=== PATIENT | male | born 1940 | race Caucasian/White ===

== ENCOUNTER 2019-06-01 22:18 | Emergency (ER) | payer MEDICARE, OTHER ==
[2019-06-01] MEDS ORDERED: PROMETHAZINE HCL INJ 25 MG in SODIUM CHLORIDE 0.9% 50ML 50 ML IVPB ONE (22:38)
[2019-06-01] MEDS ORDERED: ALUMINUM & MAGNESIUM HYDROXIDE 30 ML UD PO ONE (22:39)
[2019-06-01] MEDS ORDERED: SODIUM CHLORIDE 0.9% 50ML 50 ML ONE (22:43)
[2019-06-01] MEDS ORDERED: PROMETHAZINE HCL INJ 25 MG/ML VIAL ONE (22:43)
[2019-06-01] MEDS: ASPIRIN TABLET 325 MG TAB PO ONE ×2 (22:45→23:18)
[2019-06-01] MEDS ORDERED: METOPROLOL TARTRATE INJ 5 MG/5 ML VIAL IV ONE (23:23)
--- NOTE | 2019-06-01 23:25 | RAD ---
EXAM: XR Abdomen, 2 Views and XR Chest, 1 View CLINICAL HISTORY: The patient is 78 years old and is Male; acute nausea TECHNIQUE: Frontal view of the chest, frontal view of the abdomen/pelvis and upright or decubitus view of the abdomen. COMPARISON: No relevant prior studies available. FINDINGS: LUNGS: Unremarkable. No consolidation. PLEURAL SPACE: Unremarkable. No pneumothorax. HEART: Unremarkable. No cardiomegaly. MEDIASTINUM: Unremarkable. INTRAPERITONEAL SPACE: No free air. GASTROINTESTINAL TRACT: Multiple air-fluid levels are noted throughout the abdomen. No dilated loops of bowel are seen. Distal air is present. Postsurgical change of the bowel in the lower pelvis noted. BONES/JOINTS: There are degenerative changes of the bones. VASCULATURE: Atherosclerosis of the aorta is present. Evidence of an aortoiliac graft is present. IMPRESSION: 1. No acute cardiopulmonary process. 2. Findings suggestive of at least an ileus pattern involving the small bowel. Electronically signed by: Mary Monterroso MD 06/01/2019 11:23 PM SEWER HAND
[2019-06-01] MEDS ORDERED: MAGNESIUM SULFATE PREMIX 2GM 2 GM in PREMIX BAG 1 BAG IVPB ONE (23:33)
[2019-06-01] MEDS ORDERED: MAGNESIUM SULFATE PREMIX 2GM 50 ML IVPB ONE (23:41)
[2019-06-01] MEDS: POTASSIUM CHLORIDE ELIXIR 20 MEQ/15 ML UD PO ONE (23:42)
--- NOTE | 2019-06-02 01:01 | CT ---
EXAM: CT Angiography Chest and CT Abdomen and Pelvis With Intravenous Contrast CLINICAL HISTORY: The patient is 78 years old and is Male; hx aneurysm, nausea TECHNIQUE: Axial computed tomographic angiography images of the chest and axial computed tomography images of the abdomen and pelvis with intravenous contrast. Sagittal and coronal reformatted images were created and reviewed. This CT exam was performed using one or more of the following dose reduction techniques: automated exposure control, adjustment of the mA and/or kV according to patient size, and/or use of iterative reconstruction technique. MIP reconstructed images were created and reviewed. COMPARISON: CTA of the abdomen December 23, 2012. FINDINGS: CHEST: AORTA: Aneurysmal dilatation of the descending thoracic aorta measuring up to 3.6 cm is present. 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 PULMONARY ARTERIES: There are no obvious filling defects identified within the pulmonary arteries to suggest pulmonary embolism. GREAT VESSELS OF AORTIC ARCH: No acute findings. No dissection. No arterial occlusion or significant stenosis. LUNGS: Mild bilateral centrilobular emphysematous changes of the lungs are present. There is no lobar consolidation. PLEURAL SPACE: Unremarkable. No significant effusion. No pneumothorax. HEART: Unremarkable. No cardiomegaly. No significant pericardial effusion. ABDOMEN: LIVER: Unremarkable. No mass. GALLBLADDER AND BILE DUCTS: Unremarkable. No calcified stones. No ductal dilation. PANCREAS: The pancreas is atrophic. No ductal dilation. SPLEEN: Unremarkable. No splenomegaly. ADRENALS: Unremarkable. No mass. KIDNEYS AND URETERS: The right kidney is atrophic. The left kidney is hypertrophied. The kidneys enhance symmetrically. No obstructing renal or ureteral calculus is seen. No hydronephrosis. No solid mass. STOMACH AND BOWEL: The stomach is fluid-filled. The small bowel and colon are diffusely fluid-filled. Distal stool is present. There is no overt obstruction. Postsurgical change of the rectosigmoid colon is noted. No mucosal thickening. PELVIS: APPENDIX: No findings to suggest acute appendicitis. BLADDER: The bladder is not well distended. REPRODUCTIVE: Unremarkable as visualized. CHEST, ABDOMEN and PELVIS: INTRAPERITONEAL SPACE: Unremarkable. No significant fluid collection. No free air. BONES/JOINTS: No acute fracture. No dislocation. Multilevel degenerative change of the spine is present, specifically the lumbar spine. SOFT TISSUES: Unremarkable. VASCULATURE: Evidence of an aortoiliac bypass graft is noted extending from the infrarenal aorta. A bifemoral bypass graft is also present which is patent. Chronic occlusion of the right common iliac artery, right internal and external iliac arteries is noted. Atherosclerosis of the vasculature is present. LYMPH NODES: Unremarkable. No enlarged lymph nodes. IMPRESSION: 1. No evidence of pulmonary embolism. 2. 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 ACR White Paper guidelines (Khmichael, et al. JACR 2013; 10(10):789-94) suggest annual CTA or MRA follow-up if asymptomatic. More frequent follow-up or surgical/endovascular intervention is recommended if patient is symptomatic. 3. Evidence of an aortoiliac bypass graft with associated bifemoral bypass graft. The overall appearance is similar to prior exam. 4. Findings suggestive of a diffuse enterocolitis without evidence of obstruction. Electronically signed by: Mary Monterroso MD 06/02/2019 12:59 AM MATTRESS STRIPPER
[2019-06-02] MEDS ORDERED: POTASSIUM CHLORIDE INJ 40 MEQ 40 MEQ in SODIUM CHLORIDE 0.9% 250ML 250 ML IVPB ONE (01:21)
[2019-06-02] MEDS ORDERED: SODIUM CHLORIDE 0.9% 1000ML 1,000 ML IVS ONE ×2 (01:21→06:55)
[2019-06-02] MEDS ORDERED: KCL 40 MEQ/WATER FOR INJ 100ML 100 ML IVPB ONE ×3 (01:31→07:27)
--- NOTE | 2019-06-02 01:34 | ED.PDOC ---
History of Present Illness - General Source: patient Exam Limitations: no limitations - History of Present Illness Initial Comments: he patient is a 78-year-old male presented to the emergency room secondary to a feeling of nausea and flushing that started about an hour prior to arrival. He did have a little bit of left arm discomfort. No real chest pain or shortness of breath. No syncope. He did feel weak in general. No vomiting. No diarrhea. No syncope or near syncope. No palpitations. He was feeling fine prior to that. Of note he did have a 6 cheese casserole with heavy cream and cooking oil for supper. His diet does not usually consist of that heavy food. There is some question of mild lactose intolerance in the past. The patient does not have any coronary history however he has had a history of a aortic aneurysm requiring surgery about 6 years ago. He is not really having any abdominal pain. Vital signs are actually stablewith some mild to moderate hypertension. Timing/Duration: 1 hour Severity: moderate Improving Factors: nothing Worsening Factors: nothing Associated Symptoms: loss of appetite, malaise, nausea/vomiting, weakness <Johan Sanchez - Last Filed: 06/02/19 06:28> <Johan Valdovinos - Last Filed: 06/02/19 09:58> - General Chief Complaint: General Stated Complaint: feels bad, nausea Time Seen by Provider: 06/01/19 22:31 - History of Present Illness Allergies/Adverse Reactions: Allergies Hydromorphone [From Dilaudid] Allergy (Verified 06/01/19 23:58) Home Medications: Ambulatory Orders Alprazolam [Xanax] 1 mg PO BEDTIME 06/23/16 Calcium 500 mg PO DAILY 06/23/16 Coenzyme Q10 (Ubidecarenone) [Co Q-10] 100 mg PO DAILY 06/23/16 Cyanocobalamin [Vitamin B12] 1,500 mcg PO DAILY 06/23/16 Losartan Potassium & Hydrochlo [Losartan Potassium/Hydroc 100-12.5 mg] 1 tab PO DAILY 06/23/16 Metoprolol Succinate [Toprol XL] 50 mg PO BID 06/23/16 Multiple Vitamins W/ Minerals [Multi For Him 50+] 1 tab PO DAILY 06/23/16 Potassium Gluconate [Potassium] 99 mg PO BID 06/23/16 Vitamin E 400 unit PO DAILY 06/23/16 Amlodipine Besylate [Norvasc] 10 mg PO QAM 06/01/19 Esomeprazole Magnesium [Nexium] 40 mg PO DAILY 06/01/19 Review of Systems - Review of Systems Constitutional: States: malaise, weakness EENTM: States: no symptoms reported Respiratory: States: no symptoms reported Cardiology: States: no symptoms reported Gastrointestinal/Abdominal: States: nausea Genitourinary: States: no symptoms reported Musculoskeletal: States: no symptoms reported Skin: States: no symptoms reported Neurological: States: anxiety Endocrine: States: no symptoms reported All other Systems: No Change from Baseline <oJhan Sanchez - Last Filed: 06/02/19 06:28> Past Medical History (General) - Patient Medical History Hx Seizures: No Hx Stroke: No Hx Dementia: No Hx Cardiac Disorders: No Hx Congestive Heart Failure: No Hx Pacemaker: No Hx Hypertension: Yes Hx Diabetes: No Hx Gastroesophageal Reflux: Yes Hx Renal Disease: No Hx Cancer: No Hx Hepatitis C: No Surgical History: appendectomy - Vaccination History Hx Tetanus, Diphtheria Vaccination: No Hx Influenza Vaccination: Yes Hx Pneumococcal Vaccination: Yes - Social History Hx Alcohol Use: Yes - OCC Hx Substance Use: No Hx Substance Use Treatment: No - Triage Comment ED Triage Comment: Vague symptoms, just not feeling well <Johan Sanchez - Last Filed: 06/02/19 06:28> Family Medical History - Family History Father Family History: Unknown Living Status: <Johan Sanchez - Last Filed: 06/02/19 06:28> Physical Exam - Physical Exam General Appearance: Alert, Anxious, No apparent distress Eye Exam: bilateral normal Ears, Nose, Throat: hearing grossly normal, normal ENT inspection Neck: full range of motion, supple Respiratory: lungs clear, normal breath sounds, no respiratory distress, no accessory muscle use Cardiovascular/Chest: normal peripheral pulses, regular rate, rhythm, no edema Peripheral Pulses: radial,right: 2+, radial,left: 2+, dorsalis pedis,right: 2+, dorsalis pedis,left: 2+ Gastrointestinal/Abdominal: non tender, soft Rectal Exam: deferred Back Exam: no CVA tenderness, no vertebral tenderness Extremity: normal range of motion, non-tender, normal inspection, no pedal edema, normal capillary refill 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, alert, normal mood/affect - he is anxious, oriented x 3 Skin Exam: normal color Comments: Vital Signs - 24 hr 06/01/19 06/01/19 06/01/19 22:27 22:35 23:10 Temperature 96.8 F L Pulse Rate [ 85 80 79 Apical] Respiratory 16 Rate Blood Pressure 152/81 136/73 [Left Arm] O2 Sat by Pulse 91 L 91 L Oximetry 06/01/19 06/02/19 06/02/19 23:30 00:21 01:00 Temperature Pulse Rate [ 74 66 66 Apical] Respiratory 14 14 14 Rate Blood Pressure 161/80 141/73 126/71 [Left Arm] O2 Sat by Pulse 91 L 92 L 92 L Oximetry <Johan Sanchez - Last Filed: 06/02/19 06:28> Progress - Progress Progress: 06/02/19 01:35 the patient is a 78-year-old male presenting to emergency room secondary to a feeling of weakness and nausea that occurred at home while at rest. Workup seems to be pointing to a mild gastroenteritis whether infectious or dietary is uncertain. CT scan seems to confirm a mild ileus but no definite obstruction. Additionally there appears to be a small penetrating ulceration to the descending thoracic aorta where routine yearly imaging as long as he remained asymptomatic is recommended. At this time I do not believe that this is the source of his symptoms. Initial heart enzymes are negative. The patient is currently having his second set drawn. If it is negative as well that he will be monitored here in the emergency room overnight as there are no inpatient beds available due to renovations. The patient does have significant hypokalemia and hypomagnesemia. We are working on correcting these. The patient reports that he cannot take oral potassium at this time as he thinks he would throw it up. He has received some Phenergan for nausea. We will continue telemetry monitoring. He is not having any chest pain, shortness of breath or left arm discomfort at this time. We will continue to monitor. 06/02/19 06:29 the patient is not having any further nausea. He has however started having diarrhea, further pointing to gastroenteritis as the source of his symptoms primarily. The patient was not able to tolerate the oral potassium. He is therefore having to be replaced with IV potassium. He will need another lab check for electrolytes around 8 or 9 in the morning along with a repeat set of cardiac enzymes. If he is adequately replenished then he will likely be able to go home assuming symptoms do not worsen or change significantly. He is receiving some IV fluids to prevent significant dehydration. No chest pain. The patient is being monitored here in the emergency room for an extended emergency room stay due to a lack of available inpatient rooms, related to repai rs. 06/02/19 06:32 the patient will be followed by the oncoming ER physician for now. - Results/Orders Results/Orders: EKG shows a right bundle branch block with Q waves in inferior leads. These 2 findings are not new, they were present from an EKG from 2016. No definitive new ST segment changes or T-wave changes when compared with previous. Normal sinus rhythm with first-degree AV block at 76 bpm. Difficult to interpret otherwise secondary to conduction abnormality. Acute abdominal series is consistent with a mild ileus. CT angiogram of the chest shows no evidence of any pulmonary embolus however he does have significant calcifications of the aorta and he does have a small penetrating ulcer of the distal ascending aorta for which annual evaluation is recommended unless it is symptomatic. CT scan of the abdomen and pelvis seems to confirm a mild ileus. No obvious obstruction. Previous aortic surgery is noted. See report for details. No other obvious acute pathology is noted. 06/01/19 22:37 Telemetry .CONTINUOUS 06/01/19 22:38 EKG Assessment ONCE 06/01/19 22:45 EKG STAT 06/01/19 23:29 Hold Metformin x 48Hrs [id number] 06/02/19 01:21 Potassium Chloride Inj 40 Meq 40 meq Sodium Chloride 0.9% 250Ml [NS 250ml] 250 ml IVPB ONCE Sodium Chloride 0.9% 1000ML [Ns 1000 ml] 1,000 ml IVS ONCE 06/02/19 01:35 KCl 40 Meq/Water For Inj 100Ml [Potassium 40meq in Water 100ml] 40 meq Premix Bag 1 bag IVPB ONCE 06/02/19 01:40 EKG Assessment ONCE 06/02/19 01:45 EKG STAT Laboratory Results - last 24 hr 06/01/19 06/01/19 06/01/19 22:59 22:59 22:59 WBC 12.1 H RBC 4.62 L Hgb 15.3 Hct 45.4 MCV 98.3 H MCH 33.2 H MCHC 33.8 RDW 13.5 Plt Count 242 MPV 8.6 Absolute Neuts (auto) 9.30 H Absolute Lymphs (auto) 1.60 Absolute Monos (auto) 0.80 Absolute Eos (auto) 0.30 Absolute Basos (auto) 0.10 Neutrophils % 76.9 Lymphocytes % 13.4 L Monocytes % 6.7 Eosinophils % 2.1 Basophils % 0.9 PT INR PTT (SP) D-Dimer, Quantitative Sodium 140 Potassium 2.7 L Chloride 99 L Carbon Dioxide 31 Anion Gap 12.7 BUN 15 Creatinine 1.01 BUN/Creatinine Ratio 14.9 Random Glucose 123 H Serum Osmolality 281.6 Calcium 9.6 Magnesium 1.4 L Total Bilirubin 0.7 AST 21 ALT 14 Alkaline Phosphatase 56 Creatine Kinase 86 CK-MB (CK-2) 3.1 CK-MB (CK-2) % Not Reportable Troponin I < 0.02 B-Natriuretic Peptide 89.0 Serum Total Protein 7.8 Albumin 4.7 Globulin 3.1 Albumin/Globulin Ratio 1.5 Amylase 90 Lipase 39 Urine Color Urine Appearance Urine pH Ur Specific [place] Urine Protein Urine Glucose (UA) Urine Ketones Urine Blood Urine Nitrite Urine Bilirubin Urine Urobilinogen Ur Leukocyte Esterase Urine RBC Urine WBC Ur Epithelial Cells Urine Bacteria 06/01/19 06/02/19 06/02/19 22:59 01:20 01:30 WBC RBC Hgb Hct MCV MCH MCHC RDW Plt Count MPV Absolute Neuts (auto) Absolute Lymphs (auto) Absolute Monos (auto) Absolute Eos (auto) Absolute Basos (auto) Neutrophils % Lymphocytes % Monocytes % Eosinophils % Basophils % PT 10.1 INR 1.01 PTT (SP) 26.6 D-Dimer, Quantitative 6.21 H* Sodium Potassium Chloride Carbon Dioxide Anion Gap BUN Creatinine BUN/Creatinine Ratio Random Glucose Serum Osmolality Calcium Magnesium Total Bilirubin AST ALT Alkaline Phosphatase Creatine Kinase 70 CK-MB (CK-2) 2.5 CK-MB (CK-2) % Not Reportable Troponin I < 0.02 B-Natriuretic Peptide Serum Total Protein Albumin Globulin Albumin/Globulin Ratio Amylase Lipase Urine Color Yellow Urine Appearance Clear Urine pH 5.5 Ur Specific [place] <= 1.005 Urine Protein Negative Urine Glucose (UA) Negative Urine Ketones Negative Urine Blood Negative Urine Nitrite Negative Urine Bilirubin Negative Urine Urobilinogen 0.2 Ur Leukocyte Esterase Negative Urine RBC 0 Urine WBC 0-1 Ur Epithelial Cells 0 Urine Bacteria Rare <Johan Sanchez - Last Filed: 06/02/19 06:28> Departure - Departure Diet: bland diet Activity: increase activity as tolerated <Johan Sanchez - Last Filed: 06/02/19 06:28> <Johan Valdovinos - Last Filed: 06/02/19 09:58> - Departure Clinical Impression: Gastroenteritis Disposition: Discharge to Home or Self Care Condition: Fair Departure Forms: ED Discharge - Pt. Copy, Patient Portal Self Enrollment Referrals: LENY VORA [Primary Care Provider] - 1-2 Days Home Medications: Ambulatory Orders Alprazolam [Xanax] 1 mg PO BEDTIME 06/23/16 Calcium 500 mg PO DAILY 06/23/16 Coenzyme Q10 (Ubidecarenone) [Co Q-10] 100 mg PO DAILY 06/23/16 Cyanocobalamin [Vitamin B12] 1,500 mcg PO DAILY 06/23/16 Losartan Potassium & Hydrochlo [Losartan Potassium/Hydroc 100-12.5 mg] 1 tab PO DAILY 06/23/16 Metoprolol Succinate [Toprol XL] 50 mg PO BID 06/23/16 Multiple Vitamins W/ Minerals [Multi For Him 50+] 1 tab PO DAILY 06/23/16 Potassium Gluconate [Potassium] 99 mg PO BID 06/23/16 Vitamin E 400 unit PO DAILY 06/23/16 Amlodipine Besylate [Norvasc] 10 mg PO QAM 06/01/19 Esomeprazole Magnesium [Nexium] 40 mg PO DAILY 06/01/19 ED Addendum - ED Addendum Addendum: patient is doing a lot better and his potassium improved and his third set of troponins were negative. patient will be discharge home with instructions to keep hydrated at home and return to the er if abdominal pain, chest pain, nausea, vomiting, if not holding fluids down or any other concerns <Johan Valdovinos - Last Filed: 06/02/19 09:58>
[2019-06-02] MEDS ORDERED: KCL 40 MEQ/WATER FOR INJ 100ML 40 MEQ in PREMIX BAG 1 BAG IVPB ONE ×2 (01:35→06:40)
[2019-06-02] MEDS: POTASSIUM CHLORIDE ELIXIR 20 MEQ/15 ML UD PO ONE (01:40)
[2019-06-02] MEDS ORDERED: SODIUM CHLORIDE 0.9% 1000ML 1,000 ML ONE (06:56)
[2019-06-02 10:26] VITALS: BP 134/71; TEMP 96.4; O2SAT 93
== END 2019-06-02 10:26 | disposition home or self-care (01) ==
LOC: ER 22:18
DX: K52.9 Noninfective gastroenteritis and colitis, unspecified (principal); K21.9 Gastro-esophageal reflux disease without esophagitis; I10 Essential (primary) hypertension; Z88.5 Allergy status to narcotic agent; Z90.49 Acquired absence of other specified parts of digestive tract; Z79.899 Other long term (current) drug therapy
CPT/HCPCS: 36415; 71275; 74019; 74177; 80053; 81001; 82150; 82550; 82553; 83690; 83735; 83880; 84484; 85025; 85379; 85610; 85730; 87502; 93005; A4216; J2550; J3475; J3480; J7030

== ENCOUNTER 2019-10-09 16:52 | Inpatient (IN) | payer MEDICARE, OTHER ==
--- NOTE | 2019-10-09 17:09 | ED.PDOC ---
History of Present Illness - General Chief Complaint: General Stated Complaint: Weakness, fever, SOB and diarrhea Time Seen by Provider: 10/09/19 17:07 Source: patient, family Exam Limitations: no limitations - History of Present Illness Initial Comments: Pt reports fever up to 101F, chills, weakness and diarrhea since this a.m. He denies DE LEON, sore throat or nasal congestion. He denies abd pain. He admits to some SOB. says that had a "[employer]" burger that they picked up yesterday and wasn't sure if it was related. Pt denies urinary symptoms. His PCP is Dr. Esposito out of [place]. Pt says they have been very isolated from others for about a month. Timing/Duration: other - Since this am Severity: moderate Improving Factors: nothing Worsening Factors: nothing Associated Symptoms: cough - minimal, "allergy cough", fever/chills, malaise, shortness of breath, other - diarrhea Allergies/Adverse Reactions: Allergies Hydromorphone [From Dilaudid] Allergy (Verified 06/01/19 23:58) Home Medications: Ambulatory Orders Alprazolam [Xanax] 1 mg PO BEDTIME 06/23/16 Coenzyme Q10 (Ubidecarenone) [Co Q-10] 100 mg PO DAILY 06/23/16 Cyanocobalamin [Vitamin B12] 1,500 mcg PO DAILY 06/23/16 Losartan Potassium & Hydrochlo [Losartan Potassium/Hydroc 100-12.5 mg] 1 tab PO DAILY 06/23/16 RX: Potassium Gluconate [Potassium] 99 mg PO BID 06/23/16 Amlodipine Besylate [Norvasc] 10 mg PO QAM 06/01/19 Esomeprazole Magnesium [Nexium] 40 mg PO DAILY 06/01/19 Review of Systems - Review of Systems Constitutional: States: see HPI, chills, fever, weakness. Denies: diaphoresis EENTM: States: no symptoms reported. Denies: ear pain, ear discharge, nose pain, nose congestion, throat pain, throat swelling, mouth pain, mouth swelling Respiratory: States: see HPI, cough - "allergy cough," doesn't think it's worse than usual, short of breath. Denies: wheezing Cardiology: States: no symptoms reported Gastrointestinal/Abdominal: States: see HPI, diarrhea. Denies: abdominal pain, constipation, nausea, vomiting Musculoskeletal: States: no symptoms reported Skin: States: no symptoms reported Neurological: States: no symptoms reported Endocrine: States: no symptoms reported Hematologic/Lymphatic: States: no symptoms reported Past Medical History (General) - Patient Medical History Hx Seizures: No Hx Stroke: No Hx Dementia: No Hx Cardiac Disorders: No Hx Congestive Heart Failure: No Hx Pacemaker: No Hx Hypertension: Yes Hx Diabetes: No Hx Gastroesophageal Reflux: Yes Hx Renal Disease: No Hx Cancer: No Hx Hepatitis C: No - Vaccination History Hx Tetanus, Diphtheria Vaccination: No Hx Influenza Vaccination: Yes Hx Pneumococcal Vaccination: Yes - Social History Hx Alcohol Use: Yes - OCC Hx Substance Use: No Hx Substance Use Treatment: No Family Medical History - Family History Father Family History: Unknown Living Status: Physical Exam - Physical Exam General Appearance: Alert, Obvious distress, Ill Appearing, Well Developed, Well Groomed, Well Hydrated, Well Nourished Neck: non-tender, full range of motion, supple, normal inspection Respiratory: chest non-tender, lungs clear, normal breath sounds, no respiratory distress, no accessory muscle use Cardiovascular/Chest: normal peripheral pulses, regular rate, rhythm, no edema, no gallop Gastrointestinal/Abdominal: normal bowel sounds, non tender, soft, no organomegaly, no pulsatile mass Progress - Progress Progress: 10/09/19 17:16 Based on age and presentation, I would consider pt high risk for COVID. I assessed pt from doorway while in droplet precautions. I never entered the room and therefore, had no real reason to wear anything more than droplet precautions. Considering pt feels SOB and had O2 sat on RA of 88-89%, pt likely to be admitted for further eval and treatment. 10/09/19 18:21 CXR noted. Possible bibasilar infiltrates. COVID test ordered. Rocephin and Zithromax given. Consult placed for [facility]. UA still pending. Vital Signs - 24 hr 10/09/19 10/09/19 10/09/19 17:13 17:15 17:40 Temperature 99.3 F Pulse Rate [ 95 H Pulse Ox] Respiratory 16 16 Rate Blood Pressure 125/73 [L Arm] O2 Sat by Pulse 87 L 94 L Oximetry 10/09/19 18:00 Temperature Pulse Rate [ 89 Pulse Ox] Respiratory 16 Rate Blood Pressure 108/64 [L Arm] O2 Sat by Pulse 95 Oximetry Laboratory Tests 10/09/19 10/09/19 10/09/19 17:38 17:38 17:38 WBC 10.1 RBC 4.32 L Hgb 14.4 Hct 41.9 L MCV 96.9 H MCH 33.4 H MCHC 34.5 RDW 13.8 Plt Count 162 MPV 8.6 Absolute Neuts (auto) 9.20 H Absolute Lymphs (auto) 0.50 L Absolute Monos (auto) 0.40 Absolute Eos (auto) 0.00 Absolute Basos (auto) 0.10 Neutrophils % 90.3 H Lymphocytes % 5.1 L Monocytes % 3.9 Eosinophils % 0.2 L Basophils % 0.5 Sodium 137 Potassium 3.5 L Chloride 101 Carbon Dioxide 27 Anion Gap 12.5 BUN 16 Creatinine 0.98 BUN/Creatinine Ratio 16.3 Random Glucose 123 H Serum Osmolality 276.4 Lactic Acid 1.2 Calcium 9.3 Total Bilirubin 1.1 H AST 20 ALT 16 Alkaline Phosphatase 48 Serum Total Protein 7.3 Albumin 4.4 Globulin 2.9 Albumin/Globulin Ratio 1.5 Findings Reporting MD: Naomi Montana Fellow MD: Not available Dictation Time: Special Class Welder: Not available Broadband Technician Date: EXAM DESCRIPTION: Chest,1 View CLINICAL HISTORY: 79 years Male fever COMPARISON: Prior study dated June 01, 2019. TECHNIQUE: AP view of the chest was obtained. FINDINGS: Cardiac size is within normal limits. Central vessels are noted increased. Minimal airspace opacities lower lungs bilaterally increased when correlated with the prior study. The findings are most pronounced on the right. No consolidation. No effusions bilaterally. No pneumothorax. IMPRESSION: Increasing infiltrate versus atelectatic change lower lungs bilaterally right greater than left. Electronically signed by: Naomi Montana MD 10/09/2019 5:37 PM CDT 10/09/19 18:35 D/w [facility]. He will accept admission. He asked that I notify family that he will be in isolation through hospital stay and will not be allowed visitors until he has been cleared. 10/09/19 18:37 10/09/19 18:38 Departure - Departure Clinical Impression: Pneumonia, Acute respiratory failure with hypoxia, Diarrhea, Dehydration Time of Disposition: 18:37 Disposition: Admit Patient Condition: Fair Departure Forms: ED Discharge - Pt. Copy, Patient Portal Self Enrollment Referrals: LENY VORA [Primary Care Provider] - 1-2 Weeks Home Medications: Ambulatory Orders Alprazolam [Xanax] 1 mg PO BEDTIME 06/23/16 Coenzyme Q10 (Ubidecarenone) [Co Q-10] 100 mg PO DAILY 06/23/16 Cyanocobalamin [Vitamin B12] 1,500 mcg PO DAILY 06/23/16 Losartan Potassium & Hydrochlo [Losartan Potassium/Hydroc 100-12.5 mg] 1 tab PO DAILY 06/23/16 RX: Potassium Gluconate [Potassium] 99 mg PO BID 06/23/16 Amlodipine Besylate [Norvasc] 10 mg PO QAM 06/01/19 Esomeprazole Magnesium [Nexium] 40 mg PO DAILY 06/01/19 Decision To Admit - Decistion To Admit Decision to Admit Reason: Admit from ER Decision to Admit Date: 10/09/19 Decision to Admit Time: 18:37
[2019-10-09] MEDS ORDERED: cefTRIAXone SODIUM 1 GM in SODIUM CHL 0.9% 50ML MIN-BAG+ 50 ML IVPB ONE (17:13)
--- NOTE | 2019-10-09 17:38 | RAD ---
EXAM DESCRIPTION: Chest,1 View CLINICAL HISTORY: 79 years Male fever COMPARISON: Prior study dated June 01, 2019. TECHNIQUE: AP view of the chest was obtained. FINDINGS: Cardiac size is within normal limits. Central vessels are noted increased. Minimal airspace opacities lower lungs bilaterally increased when correlated with the prior study. The findings are most pronounced on the right. No consolidation. No effusions bilaterally. No pneumothorax. IMPRESSION: Increasing infiltrate versus atelectatic change lower lungs bilaterally right greater than left. Electronically signed by: Naomi Montana MD 10/09/2019 5:37 PM CDT
[2019-10-09] MEDS ORDERED: SODIUM CHL 0.9% 50ML MIN-BAG+ 50 ML IVPB ONE (17:40)
[2019-10-09] MEDS ORDERED: cefTRIAXone SODIUM 1 GM VIAL ONE (17:40)
[2019-10-09] MEDS ORDERED: AZITHROMYCIN IV 500 MG in SODIUM CHLORIDE 0.9% 250ML 250 ML IVPB ONE (18:16)
[2019-10-09] MEDS ORDERED: SODIUM CHLORIDE 0.9% 250ML 250 ML ONE (18:20)
[2019-10-09] MEDS ORDERED: AZITHROMYCIN IV 500 MG VIAL IVPB ONE (18:20)
--- NOTE | 2019-10-09 20:38 | HP ---
SUPERVISING PHYSICIAN: Nathan Menendez MD CHIEF COMPLAINT: Weakness, fever, shortness of breath and diarrhea. HISTORY OF PRESENT ILLNESS: Mr. Borden is a 79 year-old male patient who presents to the Emergency Room complaining of subjective fever at home up to 101 with associated chills, weakness, diarrhea, that started this morning. He denied any headache, sore throat, nasal congestion. He does have seasonal allergies. He is not complaining of any abdominal pain but does endorse he has been having some mild shortness of breath. He endorses that he and his had been fairly well isolated over the last 3 weeks at home and his has lupus and they have been very cautious about getting out. 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 He notes he has been having diarrhea this morning and just overall not feeling well. In the Emergency Room, initial vital signs showed he had a low grade fever of 99.3, heart rate 95 with blood pressure 122/73 with oxygen saturation on room air of 87% improving to 95% with 2 liter nasal cannula. Chest x-ray per radiology interpretation showed increasing infiltrate versus atelectatic changes in the lower lungs bilaterally with right greater than left. Initial laboratory studies showed normal white count at 10,100 but he did have a left shift. Chemistries showed just a mildly low potassium at 3.5, magnesium was low at 1.5, normal lactic acid. Liver functions all within normal limits. Creatinine was 0.98. Urinalysis did show trace of lysed blood with a small amount of bilirubin, otherwise unremarkable. Given his symptomatology with a fever, radiographic findings concerning for developing bilateral pneumonia and age group, the patient is going to be admitted for treatment of community acquired pneumonia with hypoxemia and tested for COVID-19. He was admitted in stable condition. He is also having a fairly large amount of diarrhea but no associated abdominal pain and will need fluid to prevent further dehydration. PAST MEDICAL HISTORY: 1. Seasonal allergies. 2. Hypertension. 3. History of diffuse enterocolitis in the recent months. PAST SURGICAL HISTORY: 1. Colon resection. 2. Abdominal aortic aneurysm repair with aortoiliac bypass graft with associated bifemoral bypass grafts. CURRENT MEDICATIONS: 1. Potassium gluconate 99 mg b.i.d. 2. Losartan. 3. Hydrochlorothiazide 100 mg/12.5 mg, 1 tablet daily. 4. Nexium 40 mg daily. 5. Vitamin B12, 1500 mcg daily. 6. CoQ10, 100 mg daily. 7. Norvasc 10 mg daily. 8. Xanax 1 mg at bedtime. ALLERGIES: HYDROMORPHONE. FAMILY HISTORY: Unremarkable. SOCIAL HISTORY: History of tobacco abuse but quit 15 years previously. He drinks alcohol on a very rare occasion. He is and on the recreational counts at [employer]. He denies any illicit drug use. REVIEW OF SYSTEMS: CONSTITUTIONAL: Positive for general malaise, fevers, generalized weakness. HEENT: Denies sore throats, earaches, nasal congestion, headaches, vision changes. RESPIRATORY: Positive for cough, he says it is allergy drainage. He does not report it as being any worse than normal but he does report some mild shortness of breath. He denies any wheezing. CARDIOVASCULAR: Denies chest pain, palpitations or syncopal episodes. GASTROINTESTINAL: Positive for persistent; diarrhea but denies nausea, vomiting, constipation or abdominal pain. MUSCULOSKELETAL: Negative for arthralgias, joint swelling. SKIN: Negative for any unexplained changes, lesions, rashes or moles. NEUROLOGIC: Negative for ataxia or seizures, headaches, vision changes or other neurological focal deficits. HEMATOLOGICAL: Denies easy bruising, unexplained bleeding or transfusion reaction. PHYSICAL EXAMINATION: VITAL SIGNS: Temperature 99.3, pulse 95, blood pressure 125/73, respirations are 16, oxygen saturation 88% initially on room air showing improvement up to 95% on 2 liter nasal cannula. GENERAL: Patient does appear ill overall but does not appear to be in any acute distress. HEENT: Tympanic membranes clear bilaterally. Oropharynx is pink, moist without any lesions. NECK: Supple, non-tender, full range of motion. no jugular venous distention. CHEST: Lung sounds were diminished towards the bases, no obvious rhonchi, rales, or wheezes. CARDIOVASCULAR: Regular rate and rhythm without appreciable murmurs, rubs, or gallops. ABDOMEN: Soft, non-tender, positive bowel sounds. EXTREMITIES: Without cyanosis, clubbing, or edema. NEUROLOGIC: He is alert and oriented x 3. SKIN: Warm, pink and dry. LABORATORY: White count normal at 10,100, hemoglobin 14.4, hematocrit 41.9, platelet count 162,000, differential showed a left shift. Chemistries showed a mild hypokalemia with potassium 3.5. Otherwise, electrolytes were within normal limits. Creatinine 0.98. Lactic acid normal at 1.2, calcium 9.3, magnesium 1.5. Liver functions were within normal limits. Urinalysis showed trace of blood, small amount of bilirubin. COVID-19 testing is pending. BioFire testing is pending. Influenza A and B by PCR was negative. Blood cultures pending. RADIOLOGY: Single-view chest per radiology interpretation showed increasing infiltrate versus atelectatic changes in the lower lungs, right greater than left. ASSESSMENT: 1. Influenza-like illness with associated developing bilateral pneumonia, likely community acquired. 2. Sepsis secondary to #1. 3. Diarrhea without any abdominal pain, possibly related to upper respiratory viral infection versus enterocolitis and acute viral infection. 4. Mild electrolyte imbalance with a hypokalemia. 5. History of hypertension. 6. History of seasonal allergies. PLAN: Mr. Borden is going to b admitted for treatment of community acquired pneumonia and influenza-like illness and concerns for COVID-19 which need to rule out with testing given his advanced age and current symptomatology. We will treat his pneumonia with antibiotic regimen including Rocephin and azithromycin. He will be on regular diet. He will be on DVT prophylaxis per protocol. He will be on oxygen as needed. We will have him on albuterol hand inhalers. We will provide him with continued fluids for maintenance considering the diarrhea he is having and if it persists we will look at doing a culture of the stool. COVID-19 test is pending as well as BioFire and we will treat accordingly. Until then, he will remain in droplet isolation. I anticipate his length of stay to be at least 2 to 3 days. Until we can transition him to outpatient management, we will continue to monitor and treat as needed #[id number] [facility]
[2019-10-09] MEDS ORDERED: SODIUM CHLORIDE 0.9% (FLUSH) 10 ML SYG IV PRN (20:56)
[2019-10-09] MEDS ORDERED: IV SET AND CAP CHANGE INJ INJ SCH (21:00)
[2019-10-09] MEDS ORDERED: MAGNESIUM SULFATE PREMIX 2GM 2 GM in PREMIX BAG 1 BAG IVPB ONE (21:13)
[2019-10-09] MEDS ORDERED: ALBUTEROL INHALER 64 PUFF/8GM INH PRN (21:14)
[2019-10-09] MEDS ORDERED: MAGNESIUM SULFATE PREMIX 2GM 50 ML IVPB ONE (21:22)
[2019-10-09] MEDS: KCL 20 MEQ/NS 1,000 ML IVS PRN (21:27)
[2019-10-09] MEDS ORDERED: ONDANSETRON INJ 4 MG/2 ML VIAL IV PRN (22:09)
[2019-10-10] MEDS: KCL 20 MEQ/NS 1,000 ML IVS PRN ×3 (05:40→20:27)
--- NOTE | 2019-10-10 07:33 | RAD ---
EXAM DESCRIPTION: XR Chest, one view CLINICAL HISTORY: Pneumonia. COMPARISON: 04/09/2020 FINDINGS: The heart is normal in size. The pulmonary vascularity is normal. The lungs are clear. No dense focal consolidation is seen. Upper lobes are mildly hyperinflated. No pneumothorax or pleural effusion is seen. The osseous structures appear unremarkable. IMPRESSION: No acute cardiopulmonary process. Electronically signed by: Nicole Yeboah MD 10/10/2019 7:31 AM CDT
[2019-10-10] MEDS ORDERED: SODIUM CHLORIDE 0.9% 250ML 250 ML ONE (08:27)
[2019-10-10] MEDS ORDERED: SODIUM CHL 0.9% 50ML MIN-BAG+ 50 ML IVPB ONE (08:28)
[2019-10-10] MEDS ORDERED: cefTRIAXone SODIUM 1 GM VIAL ONE (08:29)
[2019-10-10] MEDS ORDERED: AZITHROMYCIN IV 500 MG VIAL IVPB ONE (08:29)
[2019-10-10] MEDS: PANTOPRAZOLE SODIUM TAB 40 MG PO SCH (08:37)
[2019-10-10] MEDS: amLODIPine BESYLATE 5 MG TAB PO SCH (08:37)
[2019-10-10] MEDS: cefTRIAXone SODIUM 1 GM in SODIUM CHL 0.9% 50ML MIN-BAG+ 50 ML IVPB SCH (08:37)
[2019-10-10] MEDS: ENOXAPARIN SODIUM 40 MG/0.4 ML SYG SUBCU SCH (08:38)
[2019-10-10] MEDS: ALBUTEROL INHALER 64 PUFF/8GM INH SCH ×4 (08:45→20:35)
[2019-10-10] MEDS ORDERED: NON-FORMULARY MEDICATION 1 EA MIS (Losartan Potassium & Hydrochlo [Losartan Potassium/Hydr PO SCH (09:00)
[2019-10-10] MEDS: AZITHROMYCIN IV 500 MG in SODIUM CHLORIDE 0.9% 250ML 250 ML IVPB SCH (10:48)
[2019-10-10] MEDS: LOSARTAN POTASSIUM 100 MG TAB PO SCH (11:00)
[2019-10-10] MEDS: METOPROLOL TARTRATE 25 MG TAB PO SCH ×2 (11:00→17:01)
[2019-10-10] MEDS ORDERED: metroNIDAZOLE IV PREMIX 500MG 500 MG in PREMIX BAG 1 BAG IVPB SCH (11:30)
--- NOTE | 2019-10-10 13:31 | PN ---
SUPERVISING PHYSICIAN: Nathan Menendez MD DATE: 10/10/19 SUBJECTIVE: The patient has not run a fever since admission, but he is having a significant amount of diarrhea, but does not complain of any abdominal pain. He still has a little bit of shortness of breath and does desaturate on room air, but otherwise seems to be doing okay. He does not have any complaints of chest pain, nausea or vomiting. OBJECTIVE: VITAL SIGNS: Temperature 97.8. Pulse 63. Blood pressure 152/74. Respiratory rate 16. Saturation 98% on 2 liters nasal cannula. GENERAL: The patient is resting comfortably. He does not appear to be any acute distress. CHEST: Lung sounds are diminished towards the bases. No noted rhonchi, wheezing or rales. HEART: Regular rate and rhythm. ABDOMEN: Soft, nontender to palpation. Hyperactive bowel sounds. No rebound tenderness, no guarding. EXTREMITIES: No edema. NEUROLOGIC: Alert and oriented times three. LABORATORY: White count 8,100, hemoglobin 14, hematocrit 40.2, platelet count 166,000. Differential shows a continued left shift. Chemistries are stable with potassium 3.5, creatinine 0.92, magnesium up to 2.1, calcium 8.8. RADIOLOGY: Single-view chest per radiologic interpretation shows lungs clear with no evidence of focal consolidations. Please see that report for details. ASSESSMENT: 1. Influenza-like illness with associated community acquired pneumonia. 2. Sepsis secondary to #1. 3. Diarrhea without any abdominal pain, possibly due to enterocolitis. 4. Mild electrolyte imbalance with persistent hypokalemia and now normalized magnesium levels. 5. History of hypertension, stable. 6. History of seasonal allergies. PLAN: We will continue current plan of care at this point with treatment of community acquired pneumonia with Rocephin and azithromycin and albuterol treatments. His COVID-19 testing is still pending. BioFire was negative. He is on a regular diet and tolerating that without any complications. He is on DVT prophylaxis per protocol. He is still requiring some oxygen. We will work to titrate him off to room air. We will continue with maintenance fluids while he is having diarrhea. I will start him on some Flagyl to see if this will help slow down the diarrhea. Hopefully we will be able to discharge him tomorrow even if his COVID-19 is still pending and he can go home and self-isolate and if he is stable on room air. Until the patient can transition to outpatient management, we will continue to monitor and treat as needed. #[id number] [facility]
[2019-10-10] MEDS ORDERED: metroNIDAZOLE IV PREMIX 500MG 100 ML IVPB ONE ×3 (13:57→19:06)
[2019-10-10] MEDS: metroNIDAZOLE IV PREMIX 500MG 500 MG in PREMIX BAG 1 BAG IVPB SCH ×2 (13:59→20:26)
[2019-10-10] MEDS ORDERED: ALPRAZolam 0.5 MG TAB PO SCH (21:00)
[2019-10-11] MEDS: KCL 20 MEQ/NS 1,000 ML IVS PRN (05:03)
[2019-10-11] MEDS: metroNIDAZOLE IV PREMIX 500MG 500 MG in PREMIX BAG 1 BAG IVPB SCH ×2 (05:03→13:23)
[2019-10-11] MEDS: PANTOPRAZOLE SODIUM TAB 40 MG PO SCH (05:37)
[2019-10-11 05:41] VITALS: O2SAT 96
[2019-10-11] MEDS ORDERED: cefTRIAXone SODIUM 1 GM VIAL ONE (07:12)
[2019-10-11] MEDS ORDERED: SODIUM CHLORIDE 0.9% 250ML 250 ML ONE (07:12)
[2019-10-11] MEDS ORDERED: SODIUM CHL 0.9% 50ML MIN-BAG+ 50 ML IVPB ONE (07:12)
[2019-10-11] MEDS ORDERED: AZITHROMYCIN IV 500 MG VIAL IVPB ONE (07:13)
[2019-10-11] MEDS: METOPROLOL TARTRATE 25 MG TAB PO SCH (07:44)
[2019-10-11] MEDS: cefTRIAXone SODIUM 1 GM in SODIUM CHL 0.9% 50ML MIN-BAG+ 50 ML IVPB SCH (07:44)
[2019-10-11] MEDS: ENOXAPARIN SODIUM 40 MG/0.4 ML SYG SUBCU SCH (07:44)
[2019-10-11] MEDS: LOSARTAN POTASSIUM 100 MG TAB PO SCH (07:44)
[2019-10-11] MEDS: amLODIPine BESYLATE 5 MG TAB PO SCH (07:44)
[2019-10-11] MEDS: ALBUTEROL INHALER 64 PUFF/8GM INH SCH ×2 (07:54→11:20)
[2019-10-11 08:54] VITALS: TEMP 98
[2019-10-11] MEDS: AZITHROMYCIN IV 500 MG in SODIUM CHLORIDE 0.9% 250ML 250 ML IVPB SCH (09:10)
[2019-10-11] MEDS ORDERED: metroNIDAZOLE IV PREMIX 500MG 0 ML IVPB ONE (11:36)
[2019-10-11] MEDS ORDERED: metroNIDAZOLE 500 MG TAB PO ONE (12:36)
[2019-10-11] MEDS ORDERED: METRONIDAZOLE 500 MG PO ONE (12:37)
[2019-10-11 13:29] VITALS: BP 148/76
--- NOTE | 2019-10-13 08:25 | DS ---
SUPERVISING PHYSICIAN: Nathan Menendez MD ADMISSION DIAGNOSIS: 1. Influenza-like illness with associated developing bilateral pneumonia, likely community acquired. 2. Sepsis secondary to #1. 3. Diarrhea without any abdominal pain, possibly related to upper respiratory viral infection versus enterocolitis and acute viral infection. 4. Mild electrolyte imbalance with a hypokalemia. 5. History of hypertension. 6. History of seasonal allergies. DISCHARGE DIAGNOSIS: 1. Influenza-like illness with associated community acquired pneumonia with the patient showing good improvement with good clinical response to treatment. 2. Sepsis secondary to #1, resolved. 3. Diarrhea without any abdominal pain, possibly due to enterocolitis, resolving with no significant amount of diarrhea at discharge. 4. Mild electrolyte imbalance with persistent hypokalemia, now normalized magnesium levels. 5. History of hypertension, stable. 6. History of seasonal allergies. REASON FOR HOSPITALIZATION: Mr. Borden is a 79 year-old male patient who presents to the Emergency Room complaining of subjective fever at home up to 101 with associated chills, weakness, diarrhea, that started this morning. He denied any headache, sore throat, nasal congestion. He does have seasonal allergies. He is not complaining of any abdominal pain but does endorse he has been having some mild shortness of breath. He endorses that he and his had been fairly well isolated over the last 3 weeks at home and his has lupus and they have been very cautious about getting out. 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 He notes he has been having diarrhea this morning and just overall not feeling well. In the Emergency Room, initial vital signs showed he had a low grade fever of 99.3, heart rate 95 with blood pressure 122/73 with oxygen saturation on room air of 87% improving to 95% with 2 liter nasal cannula. Chest x-ray per radiology interpretation showed increasing infiltrate versus atelectatic changes in the lower lungs bilaterally with right greater than left. Initial laboratory studies showed normal white count at 10,100 but he did have a left shift. Chemistries showed just a mildly low potassium at 3.5, magnesium was low at 1.5, normal lactic acid. Liver functions all within normal limits. Creatinine was 0.98. Urinalysis did show trace of lysed blood with a small amount of bilirubin, otherwise unremarkable. Given his symptomatology with a fever, radiographic findings concerning for developing bilateral pneumonia and age group, the patient is going to be admitted for treatment of community acquired pneumonia with hypoxemia and tested for COVID-19. He was admitted in stable condition. He is also having a fairly large amount of diarrhea but no associated abdominal pain and will need fluid to prevent further dehydration. LABORATORY: White count on discharge 8,100 with a slight left shift. Chemistries on discharge showed potassium 3.5, otherwise, electrolytes were normal. Creatinine 0.92. Magnesium normalized at 2.1 from 1.5 on admission. Liver functions were within normal limits. Urinalysis showed trace lysed blood with small amount of bilirubin. He had a BioFire exam that was negative. He also had a COVID-19 test that was negative. Please see those reports for details. Blood cultures remain negative after 3 days. Influenza A and B by PCR was negative. RADIOLOGY: Final chest x-ray on discharge showed no acute cardiopulmonary process. HOSPITAL COURSE: Mr. Borden was admitted for treatment of community acquired pneumonia and associated with questionable enterocolitis. He was started on antibiotic coverage with Rocephin and azithromycin and was actually started on some Flagyl for persistent diarrhea. He was tolerating a diet on discharge. His COVID-19 testing came back negative. Clinically, he had shown improvement to the point where he was stable to continue with outpatient management. DISCHARGE ASSESSMENT: VITAL SIGNS: Temperature 98, pulse 67, blood pressure 160/78, respiratory rate 16, saturation 96% on 2 liters nasal cannula. GENERAL: The patient was in no acute distress. He was alert. CHEST: Clear to auscultation, just slightly diminished towards the bases. No wheezing or rales noted. HEART: Regular rate and rhythm. ABDOMEN: Soft, nontender. Positive bowel sounds. EXTREMITIES: No edema. NEUROLOGIC: Alert and oriented x3. PLAN: Mr. Borden is discharged to outpatient management with antibiotic coverage with cefdinir, Flagyl and albuterol handheld inhaler. He did finish a course of azithromycin for 3 days at 500 mg prior to discharge. Diet: Ease back into a normal diet as tolerated, avoid alcohol and spicy foods. Activity: Increase as tolerated. Prescriptions on discharge included: 1. Cefdinir 300 mg b.i.d. for 5 days, no refills. 2. ProAir Handihaler q.4h. as needed, no refills. 3. Flagyl 500 mg q.8h. for 5 days, no refills. All other medications prior to hospitalization were continued. DISPOSITION: The patient was discharged home. CONDITION ON DISCHARGE: Stable and improved. #[id number] [facility]
== END 2019-10-11 13:50 | disposition home or self-care (01) | DRG 871 ==
LOC: ER 16:52 → MS 20:37 → OBSVTOIN 20:37
PROVIDERS: ADMIT Nurse Practitioner Family; ATTEND Nurse Practitioner Family
DX: A41.9 Sepsis, unspecified organism (principal); J18.1 Lobar pneumonia, unspecified organism; J96.01 Acute respiratory failure with hypoxia; J11.1 Influenza due to unidentified influenza virus with other respiratory manifestations; K52.9 Noninfective gastroenteritis and colitis, unspecified; E86.0 Dehydration; E87.8 Other disorders of electrolyte and fluid balance, not elsewhere classified; E87.6 Hypokalemia; E83.42 Hypomagnesemia; I10 Essential (primary) hypertension; J30.2 Other seasonal allergic rhinitis; K21.9 Gastro-esophageal reflux disease without esophagitis; Z79.899 Other long term (current) drug therapy; Z88.5 Allergy status to narcotic agent; Z87.891 Personal history of nicotine dependence; Z90.49 Acquired absence of other specified parts of digestive tract

== ENCOUNTER → 2020-05-05 | Outpatient (CLI) | payer MEDICARE, OTHER ==
--- NOTE | 2020-05-05 18:00 | RAD ---
EXAM DESCRIPTION: Femur,Left CLINICAL HISTORY: 79 years Male, LEG PAIN COMPARISON: None. Findings: Four view(s)/radiograph(s) Vascular calcifications. Osteopenia. Moderate left hip osteoarthritis. No acute fracture or dislocation. No focal soft tissue swelling. IMPRESSION: No acute osseous abnormality in the left femur. Electronically signed by: Yusef Campuzano MD 05/05/2020 5:59 PM [facility]
--- NOTE | 2020-05-05 18:02 | RAD ---
EXAM DESCRIPTION: Femur,Right CLINICAL HISTORY: 79 years Male, LEG PAIN COMPARISON: None. Findings: Four view(s)/radiograph(s) Osteopenia. Vascular calcifications. Moderate right hip osteoarthritis. No acute fracture or dislocation. No focal soft tissue swelling. IMPRESSION: No acute osseous abnormality in the right femur. Electronically signed by: Yusef Campuzano MD 05/05/2020 6:00 PM [facility]
--- NOTE | 2020-05-05 18:03 | RAD ---
EXAM DESCRIPTION: Pelvis CLINICAL HISTORY: 79 years Male, LEG PAIN COMPARISON: None. Findings: One view(s)/radiograph(s) Osteopenia. Basilar calcifications. Endovascular stent. Multilevel lumbar spondylosis. Degenerative changes of the sacroiliac joints. Moderate bilateral hip osteoarthritis. No acute fracture or dislocation. No focal soft tissue swelling. IMPRESSION: No acute osseous abnormality in the pelvis. Electronically signed by: Yusef Campuzano MD 05/05/2020 6:01 PM [facility]
== END ==
LOC: RAD 07:46
PROVIDERS: ATTEND Orthopaedic Surgery
DX: M79.604 Pain in right leg (principal); M79.605 Pain in left leg